=== PATIENT | female | born 1970 | race Caucasian/White ===

== ENCOUNTER → 2018-08-01 15:42 | Outpatient (CLI) | payer OTHER, SELFPAY ==
--- NOTE | 2018-08-01 15:49 | XR_ITS ---
XR foot LT min 3V HISTORY: ITS.REASON: LT FOOT PAIN ORDERING PHYSICIAN: Oracio Curiel MD PATIENT AGE: 48 years COMPARISON: None FINDINGS: No fracture or dislocation. No lytic or blastic change. There is normal mineralization.. The joint spaces are well-preserved. No significant degenerative/arthritic changes. No erosive changes evident. IMPRESSION: Negative, no acute finding
--- NOTE | 2018-08-01 15:49 | XR_ITS ---
XR hand RT min 3V HISTORY: ITS.REASON: RT HAND PAIN ORDERING PHYSICIAN: Oracio Curiel MD PATIENT AGE: 48 years COMPARISON: None FINDINGS: No fracture or dislocation. No lytic or blastic change. There is normal mineralization.. The joint spaces are well-preserved. No significant degenerative/arthritic changes. No erosive changes evident.. IMPRESSION: Negative, no acute finding
== END ==
PROVIDERS: PCP Family Medicine; Visit Provider Family Medicine
DX: M79.672 Pain in left foot (principal); M79.641 Pain in right hand
CPT/HCPCS: 73130; 73630

== ENCOUNTER → 2020-01-07 12:56 | Outpatient (CLI) | payer OTHER, SELFPAY ==
--- NOTE | 2020-01-07 12:56 | US_ITS ---
PROCEDURE: US TRANSVAGINAL CLINICAL INDICATION: US t/v- pelvic pain, RLQP COMPARISON: US PTV US PELVIS-TRANSVAGINAL ONLY from 02/18/2017 FINDINGS: UTERUS: 10cm x 4cmx 4cm with a combined endometrial thickness of 6mm LEFT OVARY: 1bvc5inq8.5cm with a volume of 14.5ml. RIGHT OVARY: [id number] with a volume of 3.8ml. The uterus has a bulky contour with a 19 mm area of decreased echogenicity along the uterine fundus which may be due to fibroid. The fundus of the uterus is somewhat bulky. There is a 3 x 2 cm simple appearing left ovarian cyst IMPRESSION: Bulky uterus with possible fibroid and small left ovarian cyst Dictated by: Gregg Martinez MD 01/07/2020 18:39 Gregg Martinez MD in [place] 01/07/2020 18:39
== END ==
PROVIDERS: PCP Family Medicine; Visit Provider Obstetrics & Gynecology
DX: R10.31 Right lower quadrant pain (principal)
CPT/HCPCS: 76830

== ENCOUNTER → 2020-01-21 15:19 | Outpatient (CLI) | payer OTHER, SELFPAY ==
--- NOTE | 2020-01-21 15:25 | XR_ITS ---
PROCEDURE: XR MULTIPLE SPINE 6+V CLINICAL INDICATION: Personal hx of diseases of the ms sys and conn tiss COMPARISON: No exams were available for comparison FINDINGS: Moderate lower thoracic scoliosis convex right measuring 33 degrees. Mild lumbar scoliosis convex left measuring 12 degrees. No fracture or dislocation. No lytic or blastic change. There is degenerative disc disease at L5-S1. Other findings:None. IMPRESSION: Thoracolumbar scoliosis with degenerative disc disease at L5-S1 Dictated by: Gregg Martinez MD 01/21/2020 17:14 Gregg Martinez MD in [place] 01/21/2020 17:14
== END ==
PROVIDERS: PCP Family Medicine; Visit Provider Family Medicine
DX: M54.16 Radiculopathy, lumbar region (principal); Z87.39 Personal history of other diseases of the musculoskeletal system and connective tissue
CPT/HCPCS: 72084

== ENCOUNTER → 2020-09-24 14:17 | Outpatient (CLI) | payer OTHER, SELFPAY ==
--- NOTE | 2020-09-24 14:17 | US_ITS ---
PROCEDURE: US TRANSVAGINAL CLINICAL INDICATION: pelvic pain, right upper quad COMPARISON: US US TRANSVAGINAL from 01/07/2020 FINDINGS: UTERUS: 8cm x 4cmx 2cm with a combined endometrial thickness of 3.9mm LEFT OVARY: 4trr8dph9.3cm with a volume of 2.5ml. RIGHT OVARY: 2cmx 2smz8dk with a volume of 2.5ml. Single small 2 centimeter fundal uterine fibroid. Uterus is retroflexed. Ovaries are normal. Single small cervical nabothian cyst. No free fluid in the posterior cul-de-sac or pelvis. IMPRESSION: 2 centimeter fundal uterine fibroid. Retroflexed uterus. Single small cervical nabothian cyst. Dictated by: Basim Callaway MD 09/24/2020 15:47 Basim Callaway MD in [place] 09/24/2020 15:47
== END ==
PROVIDERS: PCP Family Medicine; Visit Provider Obstetrics & Gynecology
DX: R10.2 Pelvic and perineal pain (principal)
CPT/HCPCS: 76830

== ENCOUNTER → 2020-10-06 10:19 | Outpatient (CLI) | payer OTHER, SELFPAY ==
--- NOTE | 2020-10-06 10:19 | MM_ITS ---
PROCEDURE INFORMATION: Exam: MG Screening 3D Mammography Exam date and time: 10/06/2020 10:19 AM Age: 50 years old Clinical indication: Encounter for screening mammogram for malignant neoplasm of breast TECHNIQUE: Imaging protocol: Screening tomosynthesis and 2D mammography including computer-aided detection (CAD) when performed. COMPARISON: No relevant prior studies available. FINDINGS: MAMMOGRAPHY: Breast composition: The breast tissue is extremely dense, limiting the sensitivity of mammography. Mass: Questionable lobulated 2.0 cm mass in the posterior third of the left medial breast best seen in the craniocaudal projection Architectural distortion: None. Calcifications: No suspicious calcifications. Asymmetric density: None. Skin thickening: None. Axillary adenopathy: None. IMPRESSION: Patient to be recalled for spot compression views of the left breast in the CC and MLO projections, a full 90 degree lateral view of the left breast, and left breast ultrasound for further evaluation of a left breast mass. ASSESSMENT: BI-RADS Category 0: Incomplete- Need Additional Imaging Evaluation and/or Prior Mammograms for Comparison
== END ==
PROVIDERS: PCP Family Medicine; Visit Provider Obstetrics & Gynecology
DX: Z12.31 Encounter for screening mammogram for malignant neoplasm of breast (principal)
CPT/HCPCS: 77063; 77067

== ENCOUNTER → 2020-10-18 07:57 | Outpatient (CLI) | payer OTHER, SELFPAY ==
[2020-10-18 08:45] LABS: Basophils # 0.1 K/mm3 (0-0.2); Basophils % 1.3 % (0.1-2.0); Eosinophils # 0.3 K/mm3 (0.0-0.4); Hematocrit 41.3 % (37.0-47.0); Lymphocytes # 2.5 K/mm3 (0.7-4.5); Lymphocytes % 36.2 % (10-50); Mean Corpuscular HGB Conc 33.8 g/dL (31.8-35.4); Mean Corpuscular Hemoglobin 30.9 pg (27.0-31.2); Mean Corpuscular Volume 91.5 fl (81-99); Mean Platelet Volume 9.1 fl (7.4-10.4); Monocytes # 0.3 K/mm3 (0.1-1.0); Monocytes % 4.1 % (1.7-9.3); Neutrophils # 3.8 K/mm3 (1.8-7.8); Neutrophils % 54.3 % (37.0-80.0); Platelet Count 190 K/mm3 (142-424); Red Blood Count 4.51 M/mm3 (4.20-5.40); Red Cell Distribution Width 13.8 % (11.5-17.5); White Blood Count 6.9 K/mm3 (4.8-10.8)
[2020-10-18 08:47] LABS: Urine Pregnancy, HCG Qual. Negative (Negative)
[2020-10-18 08:57] LABS: Barbiturates Screen,Urine Negative ng/ml (<200)
[2020-10-18 08:58] LABS: Amphetamine/Metha Screen,Urine Negative ng/ml (<1000); Benzodiazepines Screen,Urine Negative ng/ml (<200)
[2020-10-18 08:59] LABS: Cannabinoid Screen,Urine Negative ng/ml (<50); Cocaine Screen,Urine Negative ng/ml (<300)
[2020-10-18 09:00] LABS: Methadone Screen,Urine Negative ng/ml (<300)
[2020-10-18 09:01] LABS: Opiate Screen,Urine Negative ng/ml (<300); Phencyclidine Screen,Urine Negative ng/ml (<25)
[2020-10-18 09:23] LABS: Alanine Aminotransferase 14 U/L (12-78); Albumin/Globulin Ratio 1.7 (1.1-1.8); Alkaline Phosphatase 55 U/L (38-126); Anion Gap 11.5 mEq/L (5-15); Aspartate Amino Transferase 20 U/L (14-36); Bilirubin,Total 0.6 mg/dl (0.2-1.3); Blood Urea Nitrogen 10 mg/dl (7-17); Calcium 9.2 mg/dl (8.4-10.2); Carbon Dioxide 30 mmol/L (22.0-30.0); Chloride 103 mmol/L (98-107); Estimated Glomerular Filt Rate 76 ml/min (>60); GFR (African American) 92 ML/MIN (>60); Globulin 2.4 g/dL (1.3-3.2); Glucose 89 mg/dl (74-100); Potassium 4.5 mmoL/L (3.5-5.1); Sodium 140 mmol/L (136-145); Total Protein,Serum 6.4 g/dl (6.3-8.2)
== END ==
PROVIDERS: Visit Provider Obstetrics & Gynecology
DX: Z01.812 Encounter for preprocedural laboratory examination (principal); Z11.52 Encounter for screening for COVID-19; R10.2 Pelvic and perineal pain
CPT/HCPCS: 80053; 80305; 81025; 85025; U0003

== ENCOUNTER 2020-10-20 06:18 | Day surgery (SDC) | payer OTHER, SELFPAY ==
[2020-10-15 09:45] VITALS: BMI 25.4
[2020-10-20] VITALS (12 sets, daily range): BP systolic 92–123; BP diastolic 52–80; PULSE 53–71; RESP 15–18; TEMP 36.5–43; O2SAT 92–99
--- NOTE | 2020-10-20 07:02 | HMH.ANESCL ---
[facility] Anesthesia Checklist - Patient Identification Patient Identification: Arm Band - Structural Data Admitted From: Home Planned Operative Procedure/s: Diagnostic laparoscopy with RSO Consent for Planned Operative Procedure(s) Verified: Yes - NPO Status Verified Time NPO: 00:00 - Additional verifications Anesthesia Reactions: No Hx Blood Transfusions: No Blood Transfusion Reaction: No - Airway Assessment C-Spine Mobility Assessed: Yes TMJ Mobility Assessed: Yes Dentition: Good Dentition - Neurological Assessment Level of Consciousness: Awake Hx Seizures: No Numbness or tingling in extremities: No - Anesthesia Plan Anesthesia Risk discussed: Yes Anesthesia Plan: Verified ASA Class: I Anesthesia Type: General [facility] History I have reviewed the patient's past medical history: Yes Medical History: Denies:: Cancer, Diabetes Mellitus Type 1, Diabetes Mellitus Type 2, Internal Pacemaker, MRSA, Seizures *Have you ever received a pneumonia vaccine?: No *Have you received a flu vaccine this season?: No Other Medical History: Denies: Blood Transfusion Reaction Anesthesia experience/problems:: None Other Surgeries: Yes: , Tubal Ligation. No: Pacemaker Amputation: No Fractures: No - *Social History Smoking Status: Former smoker Alcohol Intake: never Alcohol Intake Frequency:: holidays/special occasions only Substance Use Type: denies use *Occupational Status:: employed Housing: house Household Members: spouse *Travel in the last 8 weeks: None Family Hx:: No significant family history
--- NOTE | 2020-10-20 10:35 | P.PN_ITS ---
[facility] Anesthesia Record Part I Intake, IV Amount: 1,500 Estimated blood loss (mL): 50 Urine output (mL): 0 Blood Pressure: 102/63 SaO2: 92 Pulse Rate: 70 Respiratory Rate: 16 Temperature: 98.9 F Patient is:: Drowsy, Stable Stable to PACU at:: 10:30
--- NOTE | 2020-10-20 12:11 | HMH.OPNOTE ---
Date of procedure: 10/20/20 Pre-op Diagnosis:: Pelvic pain Post-op Diagnosis:: 1. Pelvic pain 2. Extensive abdominal & pelvic adhesions Procedure performed:: Diagnostic laparoscopy Extensive lysis of dense adhesions Right oophorectomy Surgeon:: Sol Belcher MD [employer] TECHNICIAN:: Jet Caputo Anesthesia: GETA Estimated blood loss (mL): 50 Operative findings:: dense adhesions between uterus and anterior abdominal wall omental adhesions to abdominal wall Operative note:: The patient was taken to the operating room and general anesthesia was administered. She was prepped/draped in lithotomy position. The anatomic location of the cervix was displaced anteriorly and to the patients right; attempted cervical dilation for placement of uterine manipulator was unsuccessful and a sponge stick was placed in the vagina as an alternative. Gloves were changed and attention was turned to the abdomen. A 5mm skin incision was made in the umbilical fold and the verees needle was inserted through the peritoneum and into the abdominal cavity in standard fashion. The abdomen was insufflated with CO2 gas. A 5mm non-bladed trocar was inserted directly into the abdominal cavity and appropriate placement was confirmed with the laparoscope. No intra-abdominal injuries occurred during entry into the abdominal cavity, as confirmed visually with the laparoscope. The patient was placed in trendelenburg and a 11mm skin incision was made 2cm above the pubic symphysis, left of midline in order to avoid omental adhesions. A 11mm non-bladed trocar was inserted under direct visualization, without complication. The uterus was elevated out of the pelvis in order to better visualize the anatomy. A survey of the pelvis and abdomen revealed the findings noted above. 5mm skin incisions were made in the left and right lower quadrants and non-bladed trocars were inserted under direct visualization, without complication. The omentum was taken down sharply and bluntly, utilizing the harmonic scalpel. The dissection of these adhesions took approximately 40 minutes to complete. Once the omentum was from the abdominal wall, the uterus was able to be visualized and was noted to be bulky in appearance with fibroids and was also densely attached to the anterior abdominal wall. The right ovary was normal in appearance, although adhesed to the right abdominal sidewall. The ovary was sharply dissected off the adominal wall and was excised using the harmonic scalpel. The ovary was removed using an endobag and sent for pathology. The abdomen and pelvis were copiously irrigated with normal saline and all pedicles were inspected for hemostasis. No active bleeding was observed, but jodee was placed over the area of omental dissection as an additional precaution. The abdomen was then evacuated of gas and all trocars removed. The skin incisions were closed with 4-0 monocryl. The sponge stick was removed from the vagina. All sponge/lap/needle/instrument counts correct. Total EBL: 50 cc. The patient was taken out of lithotomy position, extubated and taken to the PACU in stable condition. Condition: stable Disposition: PACU Specimens:: Right ovary Complications:: none
--- NOTE | 2020-10-20 14:04 | HMH.ANESII ---
[facility] Anesthesia Record Part II Discharge Time: 11:00 Destination: Surgical Day Care (OP Surgery) PACU nurse assessment reviewed?: Yes Patient Condition:: Good Anesthesia Complications:: None Swallowing reflex intact?: Yes Cyanosis?: No Blood Pressure: 110/67 Pulse Rate: 57 Temperature: 98.7 F Mental Status: Alert & Oriented Pain level:: 0 Nausea and/or vomitting:: None Intake, IV Amount: 0
== END 2020-10-20 11:40 | disposition home or self-care (01) ==
LOC: OR 06:19
PROVIDERS: PCP Family Medicine; Visit Provider Obstetrics & Gynecology
PROC: (CPT 49320; principal; 2020-10-20 08:00)
DX: K66.0 Peritoneal adhesions (postprocedural) (postinfection) (principal); R10.2 Pelvic and perineal pain; Z87.891 Personal history of nicotine dependence; M41.9 Scoliosis, unspecified; Z91.040 Latex allergy status
CPT/HCPCS: 58661; 96374; J2405; J2710

== ENCOUNTER → 2020-10-27 13:54 | Outpatient (CLI) | payer OTHER, SELFPAY ==
--- NOTE | 2020-10-27 13:55 | US_ITS ---
PROCEDURE: US BREAST LT COMPLETE CLINICAL INDICATION: abnormal mammogram COMPARISON: Screening mammogram of October 06, 2020 FINDINGS: There is a focal 1.8 x 0.8 times 1.3 centimeter anechoic lesion noted at the area of concern at 10 o'clock position which may represent a complex cyst with internal septations versus a cluster of cysts. There is no significant vascularity is noted within the septations. On a single image there is demonstrable flow noted in the septation which could not be redemonstrated, likely artifactual. Further smaller anechoic lesions are noted at 11 o'clock and 9 o'clock positions, likely represent cysts. Left axillary lymph nodes measuring up to 1.3 centimeters noted, demonstrate central fatty hilum and normal morphology. IMPRESSION: BI-RADS category 3, probably benign. Follow-up ultrasound in 6 months is recommended. Dictated by: Harriet Plata 10/27/2020 14:45 Harriet Plata in [facility] 10/27/2020 14:45
--- NOTE | 2020-10-27 13:55 | MM_ITS ---
PROCEDURE: MM DIG MAMM DX UNILAT LT CAD Digital Breast Tomosynthesis Included CLINICAL INDICATION: abnormal mammogram COMPARISON: Screening mammogram of December 06, 2020. TECHNIQUE: Standard CC and MLO images and 3D Tomosynthesis was obtained. R2 CAD reviewed. FINDINGS: The breast is extremely dense, may lower sensitivity of the study. There is a focal density noted on the left upper inner breast, persists on spot compression images. Ultrasound demonstrates focal anechoic lesion with the internal septations versus cluster of cysts. Benign appearing calcifications noted in the left breast. IMPRESSION: Probably benign finding. BI-RAD Category: 3 Probably Benign Finding Short Term Follow-Up FOLLOW-UP: Follow-up ultrasound in 3-6 months recommended. (A letter has been sent to the patient regarding results of the study.) Dictated by: Harriet Plata 10/27/2020 14:50 Harriet Plata in [place] 10/27/2020 14:50
== END ==
PROVIDERS: PCP Family Medicine; Visit Provider Obstetrics & Gynecology
DX: R92.8 Other abnormal and inconclusive findings on diagnostic imaging of breast (principal)
CPT/HCPCS: 76641; 77061; 77065; G0279

== ENCOUNTER → 2021-02-05 13:21 | Outpatient (CLI) | payer OTHER, SELFPAY ==
--- NOTE | 2021-02-05 13:21 | US_ITS ---
PROCEDURE: US BREAST LT COMPLETE CLINICAL INDICATION: repeat COMPARISON: MG MM DIG SCREENING MAMM BI W/CAD from 10/06/2020 MG MM DIG MAMM DX UNILAT LT CAD from 10/27/2020 US US BREAST LT COMPLETE from 10/27/2020 FINDINGS: 5 mm cyst at 1 o'clock near the nipple. 5 mm cyst at 3 o'clock near the nipple 5 mm cyst at 9 o'clock mid Complicated cyst at 10 o'clock at 2 by 1.4 cm not significantly changed. Complicated cyst at 11 o'clock mid breast at 6 mm IMPRESSION: Overall no change in the complicated cysts with the dominant cyst at 10 o'clock. BI-RADS category 3 probably benign. Recommend left-sided diagnostic mammogram in April 2021 which would be 6 months from the original mammogram. Ultrasound may need to be performed at that time as well. Dictated by: Gregg Martinez MD 02/19/2021 17:21 Gregg Martinez MD in [place] 02/19/2021 17:21
== END ==
PROVIDERS: PCP Family Medicine; Visit Provider Obstetrics & Gynecology
DX: R92.8 Other abnormal and inconclusive findings on diagnostic imaging of breast (principal)
CPT/HCPCS: 76641

== ENCOUNTER → 2021-03-19 15:47 | Outpatient (CLI) | payer OTHER, SELFPAY | PROVIDERS: Visit Provider Obstetrics & Gynecology | DX: N92.6 Irregular menstruation, unspecified (principal) | CPT/HCPCS: 36415; 83001 ==

== ENCOUNTER → 2021-05-29 14:08 | Outpatient (CLI) | payer OTHER, SELFPAY ==
--- NOTE | 2021-05-29 14:08 | US_ITS ---
PROCEDURE INFORMATION: Exam: US Left Breast, Complete MG Left Diagnostic Breast Tomosynthesis Exam date and time: 05/29/2021 2:33 PM Age: 51 years old Clinical indication: 6 month follow up TECHNIQUE: Imaging protocol: Complete ultrasound of all four quadrants of the Left breast and the retroareolar regions, including ultrasound of the axilla when performed. Left Diagnostic tomosynthesis and 2D mammography including computer-aided detection (CAD) when performed. Unilateral or bilateral exam. COMPARISON: 1. MG MM DIG MAMM DX UNILAT LT CAD 10/27/2020 1:58 PM 2. MG MM DIG SCREENING MAMM BI W/CAD 10/06/2020 10:22 AM FINDINGS: MAMMOGRAPHY: The breast tissue is extremely dense, which lowers the sensitivity of mammography. There is no stellate mass, architectural distortion or suspicious microcalcifications to suggest malignancy. No skin thickening or axillary adenopathy. ULTRASOUND: Sonographic images of the left breast including the retroareolar region, all 4 quadrants and the axilla do not demonstrate any solid masses. Few scattered cysts are present including a 1.9 cm cluster of cysts in the 10 o'clock axis 7 cm from the nipple. No architectural distortion or acoustical shadowing. No skin thickening or axillary adenopathy. IMPRESSION: No mammographic or sonographic evidence of malignancy. Annual bilateral mammographic screening is recommended in October 2021 unless otherwise clinically indicated. ASSESSMENT: BI-RADS Category 2: Benign
== END ==
PROVIDERS: PCP Family Medicine; Visit Provider Obstetrics & Gynecology
DX: R92.8 Other abnormal and inconclusive findings on diagnostic imaging of breast (principal)
CPT/HCPCS: 76641; 77061; 77065; G0279

== ENCOUNTER → 2022-06-02 15:50 | Outpatient (CLI) | payer OTHER, SELFPAY ==
--- NOTE | 2022-06-02 15:50 | MM_ITS ---
PROCEDURE INFORMATION: Exam: MG Bilateral Screening 3D Mammography Exam date and time: 06/02/2022 3:45 PM Age: 52 years old Clinical indication: Screening examination TECHNIQUE: Imaging protocol: Bilateral Screening tomosynthesis and 2D mammography including computer-aided detection (CAD) when performed. COMPARISON: 1. MG MM DIG MAMM DX UNILAT LT CAD 05/29/2021 2:28 PM 2. MG MM DIG MAMM DX UNILAT LT CAD 10/27/2020 1:58 PM FINDINGS: MAMMOGRAPHY: Breast composition: The breasts are heterogeneously dense, which may obscure small masses. Mass: No suspicious masses Architectural distortion: None. Calcifications: No suspicious calcifications. Asymmetric density: None. Skin thickening: None. Axillary adenopathy: None. IMPRESSION: No mammographic evidence of malignancy. Annual screening is recommended unless otherwise clinically indicated. ASSESSMENT: BI-RADS Category 1: Negative
== END ==
PROVIDERS: PCP Family Medicine; Visit Provider Obstetrics & Gynecology
DX: Z12.31 Encounter for screening mammogram for malignant neoplasm of breast (principal)
CPT/HCPCS: 77063; 77067

== ENCOUNTER 2023-08-31 13:17 | Outpatient (CLI) | payer OTHER, SELFPAY ==
--- NOTE | 2023-08-31 13:22 | MM_ITS ---
PROCEDURE INFORMATION: Exam: MG Bilateral Screening 3D Mammography Exam date and time: 08/31/2023 1:17 PM Age: 53 years old Clinical indication: Screening examination TECHNIQUE: Imaging protocol: Bilateral Screening tomosynthesis and 2D mammography including computer-aided detection (CAD) when performed. COMPARISON: 1. MG MM DIG SCREENING MAMM BI W/CAD 06/02/2022 3:45 PM 2. MG MM DIG MAMM DX UNILAT LT CAD 05/29/2021 2:28 PM FINDINGS: MAMMOGRAPHY: Breast composition: The breasts are heterogeneously dense, which may obscure small masses. Mass: No new or suspicious masses Architectural distortion: None. Calcifications: No suspicious calcifications. Asymmetric density: None. Skin thickening: None. Axillary adenopathy: None. IMPRESSION: No mammographic evidence of malignancy. Annual screening is recommended unless otherwise clinically indicated. ASSESSMENT: BI-RADS Category 1: Negative
== END 2023-08-31 23:59 | disposition home or self-care (01) ==
LOC: RAD 13:18
PROVIDERS: PCP Family Medicine; Visit Provider Family Medicine
DX: Z12.31 Encounter for screening mammogram for malignant neoplasm of breast (principal)
CPT/HCPCS: 77063; 77067

== ENCOUNTER 2023-09-15 08:16 | Outpatient (CLI) | payer OTHER, SELFPAY ==
--- NOTE | 2023-09-15 08:22 | US_ITS ---
FINAL REPORT CLINICAL HISTORY: RUQ ABDOMINAL PAIN;NAUSEA AND VOMITING COMPARISON: None FINDINGS: Sonographic images of the right upper quadrant were obtained. The pancreas is partially obscured.The liver has an unremarkable appearance.The gallbladder appears normal without evidence of gallstones.There is no evidence of biliary ductal dilatation.The common duct measures 4mm. Limited images of the right kidney are unremarkable. IMPRESSION: Unremarkable right upper quadrant ultrasound. Reviewed, Interpreted and Dictated by Arian Ho III, MD Transcribed by Ivette Chavez Authenticated and [facility]
== END 2023-09-15 23:59 | disposition home or self-care (01) ==
LOC: RAD 08:17
PROVIDERS: PCP Family Medicine; Visit Provider Family Medicine
DX: R10.11 Right upper quadrant pain (principal); R11.2 Nausea with vomiting, unspecified
CPT/HCPCS: 76705

== ENCOUNTER 2024-02-23 10:13 | Outpatient (CLI) | payer OTHER, SELFPAY ==
--- NOTE | 2024-02-23 10:21 | NM_ITS ---
FINAL REPORT CLINICAL HISTORY: pain..n/v 11:05 am 7.61 mci choletec 1.5 mcg of cck no pain during cck FINDINGS: Sequential anterior projection images of the abdomen were obtained after the intravenous injection of 7.6 mCi technetium 99m Choletec. There is normal uptake of radiotracer by the liver. The bile ducts are visualized by 10 minutes. Gallbladder activity is seen by 15 minutes. Bowel activity is noted by 15 minutes. After 1 hour, 1.5 ?g of CCK was injected intravenously for calculation of gallbladder ejection fraction. The gallbladder ejection fraction is 56%, which is within normal limits. IMPRESSION: No evidence of cystic duct or bile duct obstruction. Normal gallbladder ejection fraction of 56%. Reviewed, Interpreted and Dictated by Arian Ho III, MD Transcribed by Stacie Sandoval Authenticated and [facility]
[2024-02-23] MEDS: SINCALIDE 1.5 MCG in 0.9 % SODIUM CHLORIDE 50 ML 100 MCG IV (13:50)
[2024-02-23] MEDS: SODIUM CHLORIDE 0.9% 10ML SYR (RAD ONLY) 10 ML IV (13:50)
[2024-02-23] MEDS: ISOTOPE CHOLETECH;1 DOSE (UP TO 15 MCI) IV (13:50)
== END 2024-02-23 23:59 | disposition home or self-care (01) ==
PROVIDERS: PCP Family Medicine; Visit Provider Family Medicine
DX: R10.11 Right upper quadrant pain (principal)
CPT/HCPCS: 78227; A9537; J2805

== ENCOUNTER 2024-03-02 11:36 | Outpatient (CLI) | payer OTHER, SELFPAY ==
--- NOTE | 2024-03-02 11:57 | ECG_ITS ---
APPROVED REPORT Exam: Resting ECG HR:57 bpm ECG Measurements Heart Rate 57 AXES SD 148 P 76 QRSd 91 QRS 79 QT 406 T 74 QTc 401 Conclusion SINUS BRADYCARDIA O/w normal ECG UNCONFIRMED REPORT Electronically signed by : Maldonado Alejo MD 03/02/2024 13:18:18
[2024-03-02 12:19] LABS: Basophils # 0.1 K/mm3 (0-0.2); Basophils % 1.7 % (0.1-2.0); Eosinophils # 0.2 K/mm3 (0.0-0.4); Eosinophils % 2.5 % (0.1-12.0); Hemoglobin 14.9 g/dL (12.2-16.2); Lymphocytes # 2.4 K/mm3 (0.7-4.5); Lymphocytes % 36.6 % (10-50); Mean Corpuscular HGB Conc 34.6 g/dL (31.8-35.4); Mean Corpuscular Hemoglobin 31.2 pg (27.0-31.2); Mean Platelet Volume 9.1 fl (7.4-10.4); Monocytes # 0.4 K/mm3 (0.1-1.0); Monocytes % 5.4 % (1.7-9.3); Neutrophils # 3.5 K/mm3 (1.8-7.8); Neutrophils % 53.8 % (37.0-80.0); Platelet Count 207 K/mm3 (142-424); Red Blood Count 4.78 M/mm3 (4.20-5.40); Red Cell Distribution Width 13.5 % (11.5-17.5); White Blood Count 6.4 K/mm3 (4.8-10.8)
[2024-03-02 12:28] LABS: Creatine Kinase 56 U/L (30-135)
[2024-03-02 12:38] LABS: CKMB Relative Index 1.4 U/L (0-4.0); Creatine Kinase MB 0.8 ng/ml (0.0-2.03)
[2024-03-02 12:42] LABS: Albumin Level 4.5 g/dl (3.5-5.0); Chloride 104 mmol/L (98-107)
[2024-03-02 12:42] LABS: Troponin I < 0.01 ng/ml (0.00-0.034)
[2024-03-02 12:43] LABS: Potassium 4.4 mmoL/L (3.5-5.1); Sodium 138 mmol/L (136-145)
[2024-03-02 12:45] LABS: Alanine Aminotransferase 20 U/L (12-78); Alkaline Phosphatase 84 U/L (38-126); Anion Gap 12.4 mEq/L (5-15); Aspartate Amino Transferase 24 U/L (14-36); Bilirubin,Total 0.6 mg/dl (0.2-1.3); Blood Urea Nitrogen 14 mg/dl (7-17); Carbon Dioxide 26 mmol/L (22.0-30.0); Estimated Glomerular Filt Rate 75 ml/min (>60); GFR (African American) 91 ML/MIN (>60)
[2024-03-02 12:46] LABS: Calcium 9.9 mg/dl (8.4-10.2); Globulin 2.3 g/dL (1.3-3.2); Glucose 99 mg/dl (74-100); Total Protein,Serum 6.8 g/dl (6.3-8.2)
== END 2024-03-02 23:59 | disposition home or self-care (01) ==
LOC: RT 11:38
PROVIDERS: PCP Family Medicine; Visit Provider Physician Assistant
DX: R07.89 Other chest pain (principal)
CPT/HCPCS: 36415; 80053; 82550; 82553; 84484; 85025; 93005

== ENCOUNTER 2024-05-16 09:28 | Day surgery (SDC) | payer OTHER, SELFPAY ==
[2024-05-15 09:02] VITALS: BMI 28.3
[2024-05-16] MEDS: LACTATED RINGERS 1000ML 1,000 ML 50 ML IV (09:48)
[2024-05-16 09:50] VITALS: BP 129/71; PULSE 71; RESP 18; TEMP 36.6; O2SAT 97
--- NOTE | 2024-05-16 10:18 | P.PNANES_ITS ---
[facility] Disclaimer: The information contained in this section may have been updated after the patient was seen, as this information can be updated by other users. Medical History No significant past medical history Surgical History S/P oophorectomy History of tubal ligation History of section Family History Other Dementia Diabetes Social History Smoking Status: Former smoker alcohol intake: never substance use type: denies use current occupational status: employed Travel in the last 8 weeks: None household members: spouse housing: house current occupational exposures/hazards: No caffeine: Yes Have you lived/traveled outside US in past 30 days?: No Contact w/someone who lives/traveled outside US past 30 days?: No Exposure to someone with infectious disease in past 14 days?: No Do you have a fever (greater than 100.4 F or 38 C)?: No Have you tested positive for COVID-19: No Exposed to someone with COVID-19 in past 14 days?: No Do you have a sore throat?: No Do you have a cough?: No Do you have any weakness?: No Are you experiencing any nausea/vomitting?: No Do you have any diarrhea?: No Are you experiencing any unusual bleeding?: No Do you have any muscle aches/pain?: No Do you have any abdominal pain?: No Are you experiencing loss of taste or smell?: No [facility] Anesthesia Checklist Patient Identification Patient Identification: Verbal (Name & ) Structural Data Admitted From: Home Planned Operative Procedure/s: colonoscopy Consent for Planned Operative Procedure(s) Verified: Yes NPO Status Verified Time NPO: 00:00 Additional verifications Anesthesia Reactions: No Hx Blood Transfusions: No Blood Transfusion Reaction: No Airway Assessment Mallampati Score:: Class II C-Spine Mobility Assessed: Yes TMJ Mobility Assessed: Yes Dentition: Good Dentition Neurological Assessment Level of Consciousness: Awake, Alert and Appropriate Anesthesia Plan Anesthesia Risk discussed: Yes Anesthesia Plan: Verified ASA Class: I Anesthesia Type: MAC
[2024-05-16 10:42] VITALS: O2SAT 100
--- NOTE | 2024-05-16 10:47 | P.HP_ITS ---
History of Present Illness *Admission Date: 05/16/24 *Reason for visit:: GERD and screening for colon cancer *History of present illness: Ms. Levy is a 54-year-old female with some GERD and dyspepsia. She also has never had screening colonoscopy and she is here for diagnostic EGD and screening colonoscopy. The examination is deemed medically necessary for EGD and colonoscopy. The patient has been seen, interviewed and examined prior to the procedure by both myself and the anesthesia provider. [facility] Disclaimer: The information contained in this section may have been updated after the patient was seen, as this information can be updated by other users. Medical History (Updated 05/16/24 @ 10:49 by Matthew Turpin II, MD) No significant past medical history Surgical History S/P oophorectomy History of tubal ligation History of section Family History Other Dementia Diabetes Social History Smoking Status: Former smoker alcohol intake: never substance use type: denies use current occupational status: employed Travel in the last 8 weeks: None household members: spouse housing: house current occupational exposures/hazards: No caffeine: Yes Have you lived/traveled outside US in past 30 days?: No Contact w/someone who lives/traveled outside US past 30 days?: No Exposure to someone with infectious disease in past 14 days?: No Do you have a fever (greater than 100.4 F or 38 C)?: No Have you tested positive for COVID-19: No Exposed to someone with COVID-19 in past 14 days?: No Do you have a sore throat?: No Do you have a cough?: No Do you have any weakness?: No Are you experiencing any nausea/vomitting?: No Do you have any diarrhea?: No Are you experiencing any unusual bleeding?: No Do you have any muscle aches/pain?: No Do you have any abdominal pain?: No Are you experiencing loss of taste or smell?: No Other Medical History Have you received the Flu Vaccine for this season: No Have you received the Pneumonia Vaccine: No Review of Systems Review of Systems Review of systems (narrative): Negative *Cardiovascular Comments: Negative *Gastrointestinal Comments: Negative *Genitourinary Comments: Negative *Musculoskeletal Comments: Negative *Neurologic Comments: Negative Meds Home Medications and Allergies Home Medications ?Medication ?Instructions ?Recorded ?Confirmed ?Type No Known Home Medications 05/16/24 05/16/24 History New Prescriptions to Start Prescriptions: Allergies Allergy/AdvReac Type Severity Reaction Status Date / Time latex Allergy Unknown Verified 05/16/24 09:49 allergy reaction Exam Data for Last 24 hours Vital signs and Labs for Last 24 Hours: Temp Pulse Resp BP Pulse Ox O2 Del Method O2 Flow Rate 97.8 F 71 18 129/71 97 Nasal Cannula 5 05/16/24 09:50 05/16/24 09:50 05/16/24 09:50 05/16/24 09:50 05/16/24 09:50 05/16/24 10:42 05/16/24 10:42 I & O for Last 24 hours: Intake & Output 05/13/24 05/14/24 05/15/24 05/16/24 23:59 23:59 23:59 23:59 Weight 160 lb *Routine HEENT Exam Head: Present normocephalic Eye: Present EOMI and PERRL ENT: Present mucous membranes moist *Routine Neck Exam Neck: Present supple *Routine Respiratory Exam Respiratory: Present CTA bilaterally *Routine Cardiovascular Exam Cardiovascular: Present RRR *Routine Abdominal Exam Abdominal: Present soft and normoactive bowel sounds; Absent tenderness *Routine Rectal Exam Rectal:: deferred *Routine Genitalia Exam Genitalia:: deferred *Routine Extremities Exam Extremities: Absent cyanosis, clubbing or edema *Routine Skin Exam Skin: Present warm; Absent rash *Routine Neurological Exam Neurological: Present alert and oriented X3 Assessment and Plan *Assessment and plan (1) Acid reflux: Status: Acute Category: Medical Code(s): K21.9 - Gastro-esophageal reflux disease without esophagitis (2) Heartburn: Status: Acute Category: Medical Code(s): R12 - Heartburn (3) Screening for colon cancer: Status: Acute Category: Medical Code(s): Z12.11 - Encounter for screening for malignant neoplasm of colon Plan A/P: 1. Heartburn/reflux for upper endoscopy and screening for colon cancer for colonoscopy is the preprocedural diagnosis. The patient will be anesthetized/sedated using MAC sedation. The patient has been seen and examined. Cardiac and lung assessment prior to the examination is stable. Proceed with planned EGD and colonoscopy
--- NOTE | 2024-05-16 10:49 | P.PCN_ITS ---
[facility] Procedure Note Date: 05/16/24 Time: 11:08 Procedure Note:: Upper Endoscopy Procedure Report: Esophagogastroduodenoscopy with cold biopsies and TTS balloon dilation Endoscopost: Matthew Turpin II, MD Referring Physician: Oracio Curiel MD Date of Procedure: May 16, 2024 Equipment: Olympus GIF 190 standard upper endoscope Sedation: MAC sedation Indications: Mrs. Levy is a 54-year-old female who is here for diagnostic upper endoscopy. The patient was having some dyspepsia/epigastric pain which improved. Now, she has primarily nocturnal heartburn and reflux when she is supine. She has tried omeprazole and pantoprazole both of which give her headaches. She reports no belching or dysphagia. She does have some bloating and intermittent early satiety. She reports regular bowel function. She did have an unremarkable gallbladder ultrasound. Her HIDA scan was normal with an ejection fraction of 56%. She reports no nausea, vomiting or weight loss. Procedure: Prior to the procedure, a history and physical exam was performed, and patient's medications and allergies were reviewed. The risks, benefits and alternatives of the sedation and procedure were discussed with the patient. All questions were answered and informed consent was obtained. The patient was brought to the procedure room. Patient identification and proposed procedure were verified by the physician and the nurse. The patient was placed in a left lateral decubitus position and the scope was passed under direct vision. Throughout the procedure, the patient's blood pressure, pulse, and oxygen saturations were monitored continuously. The upper GI endoscopy was accomplished without di fficulty. The patient tolerated the procedure well. Findings: The scope was passed directly into the upper esophagus and advanced to the third portion of the duodenum. The post bulbar duodenum and duodenal bulb were normal with normal mucosa and conniventes. There was a single small lymphangiectasia in the second portion of the duodenum that was biopsied. The scope was withdrawn through a normal duodenal bulb and pylorus into the stomach. There was some very mild peptic duodenitis of the bulb. Within the stomach there was some very mild reactive gastropathy of the antrum. The body and fundus were normal. Biopsies were taken along the lesser curvature to rule out H. pylori. Upon retroflexion there was a 4 cm hiatal hernia. There were no Hemal's erosions. The scope was then withdrawn into the esophagus. There was a distal esophageal ring. There was grade A?B (LA classification) reflux esophagitis. The esophageal fibrotic ring was dilated to 60 Georgian/20 mm with a TTS hydrostatic balloon with shattering of the ring. There was no evidence of Diaz's esophagus. The remainder of the esophageal mucosa was normal. Impression: 1. Grade A?B (LA classification) reflux esophagitis with medium sized 4 cm hiatal hernia 2. Distal esophageal fibrotic ring?dilated to 20 mm 3. Mild reactive gastropathy and mild duodenitis 4. Small duodenal lymphangiectasia Plan: I will follow-up the biopsies. I will recommend Ham since she has intolerable side effect of headache with PPI therapy. I will proceed with screening colonoscopy.
--- NOTE | 2024-05-16 11:22 | HMH.PROCNOTE ---
[facility] Procedure Note Date: 05/16/24 Time: 11:22 Procedure Note:: Colonoscopy Procedure Report: Colonoscopy Endoscopist: Matthew Turpin II, MD Referring physician: Oracio Curiel MD Date of Procedure: May 16, 2024 Equipment: Olympus 190 variable stiffness pediatric colonoscope Sedation: MAC sedation Indication: Mrs. Levy is a 54-year-old female who is here for initial screening colonoscopy. The patient reports no abdominal pain, weight loss, change in her bowel habits or rectal bleeding. She reports no family history of colon cancer. Procedure: Prior to the procedure, a history and physical exam was performed, and patient's medications and allergies were reviewed. The risks, benefits and alternatives of the sedation and procedure were discussed with the patient. All questions were answered and informed consent was obtained. The patient was brought to the procedure room. Patient identification and proposed procedure were verified by the physician and the nurse. The patient was placed in a left lateral decubitus position and the scope was passed under direct vision. Throughout the procedure, the patient's blood pressure, pulse, and oxygen saturations were monitored continuously. The colonoscopy was accomplished without difficulty. The patient tolerated the procedure well. Findings: On digital rectal examination there was normal rectal tone. There were no external hemorrhoids. The colonoscope was introduced through the anal canal to the rectum and advanced to the cecum. The ileocecal valve and appendiceal orifice were identified. The scope was advanced a short distance into the ileum which appeared grossly normal. The scope was then withdrawn into the colon. The cecum, ascending, transverse, descending, sigmoid and rectum were grossly normal. There were no mucosal abnormalities identified. Upon retroflexion within the rectum there were grade 1 internal hemorrhoids. The preparation was excellent throughout with [place] Preparation Score of 9. The cecal time was 11 minutes. Impression: 1. Normal colonoscopy with intubation of the terminal ileum Plan: The patient will not require surveillance colonoscopy again for 10 years per ACS guidelines.
[2024-05-16 11:26] VITALS: BP 87/56; PULSE 83; RESP 16; TEMP 36.4; O2SAT 95
[2024-05-16 11:36] VITALS: BP 85/57; PULSE 77; RESP 16; O2SAT 96
[2024-05-16 11:39] VITALS: BP 88/57; PULSE 87; RESP 16; O2SAT 96
[2024-05-16 11:56] VITALS: BP 91/55; PULSE 68; RESP 16; O2SAT 97
== END 2024-05-16 12:21 | disposition home or self-care (01) ==
PROVIDERS: PCP Family Medicine; Visit Provider Internal Medicine Gastroenterology
PROC: 0DJ08ZZ Inspection of Upper Intestinal Tract, Via Natural or Artificial Opening Endoscopic (ICD-10-PCS; CPT 45378; principal; 2024-05-16 11:00)
DX: K21.00 Gastro-esophageal reflux disease with esophagitis, without bleeding (principal); Z12.11 Encounter for screening for malignant neoplasm of colon; R10.13 Epigastric pain; K44.9 Diaphragmatic hernia without obstruction or gangrene; K22.2 Esophageal obstruction; K31.9 Disease of stomach and duodenum, unspecified; K29.80 Duodenitis without bleeding; I89.0 Lymphedema, not elsewhere classified; K64.0 First degree hemorrhoids
CPT/HCPCS: 43239; 43249; 45378; C1726; J7120

== ENCOUNTER 2024-09-20 07:48 | Outpatient (CLI) | payer OTHER, SELFPAY ==
--- OUTSIDE RECORDS SUMMARY | 2023-09-09 07:00 | XMS_ITS ---
Author Organization [facility] Address [address] [facility] [address] [place] [id number] Care Team Providers Care Trim Master Operator Name Role Phone Rocco Lema Primary Care Provider [phone] Oracio Curiel Unavailable [phone] Allergies No Known Allergies Results Component Value Reference Range Notes CBC Fingerstick (in house) Reviewed date:09/09/2023 11:56:33 AM Interpretation: Performing Lab: Notes/Report: wbc 8.1 3.5 - 10 lym 23.4 15 - 50 mid 6.0 2 - 15 gran 70.6 35 - 80 rbc 4.82 3.5 - 5.5 hgb 14.8 11.5 - 16.5 hct 45.5 35 - 55 mcv 94.2 75 - 100 mch 30.7 25 - 35 mchc 32.6 31 - 38 plat 195 100 - 400 P-Amylase Reviewed date:09/12/2023 01:20:01 PM Interpretation:Normal Performing Lab: Notes/Report: Test performed by [facility] [address] [place], [place] [address] [place] , [address], [place] [address] Kobe Barajas MD, [employer] CLIA: [id number] Amylase 63 28-100 U/L P-Comprehensive Metabolic Pa estevan (CMP) Reviewed date:09/12/2023 01:20:36 PM Interpretation:Satisfactory Performing Lab: Notes/Report: Test performed by [facility] [address] [place], [place] [address] [place] , [address], [place] [address] Kobe Barajas MD, [employer] CLIA: [id number] Sodium 141 135-145 mEq/L Potassium 4.7 3.5-5.3 mEq/L Chloride 105 97-108 mEq/L CO2 25 22-32 mEq/L Glucose 101 65-99 mg/dL BUN 9 6-20 mg/dL Creatinine 0.79 0.50-1.00 mg/dL Calcium 9.7 8.6-10.4 mg/dL eGFR by Creatinine 89 >59 mL/min/1.73m2 Protein 6.6 6.0-8.3 g/dL Albumin 4.5 3.5-5.3 g/dL Alkaline Phosphatase 92 35-121 IU/L ALT (SGPT) 17 <5-47 IU/L AST (SGOT) 18 <5-40 IU/L Bilirubin, Total 0.5 <0.2-1.2 mg/dL A/G Ratio 2.1 1.1-2.5 mg/dL P-Lipase Reviewed date:09/12/2023 01:20:17 PM Interpretation:Normal Performing Lab: Notes/Report: Test performed by [employer] [facility] [address] , [address], [place] [address] Kobe Barajas MD, Utility Plant Operative CLIA: [id number] Lipase 28.0 13.0-60.0 u/L Ultrasound : Right Upper Shane drpepe Reviewed date:09/19/2023 10:39:02 AM Interpretation:unremarkable Performing Lab: Notes/Report: unremarkable REASON FOR VISIT stomach pain ,vertgo and vomittiing Medications Medication SIG (Take, Route, Frequency, Duration) Notes Start Date End Date Status Ondansetron HCl 4 MG 1 tablet Orally thr ee times a day as needed 09/09/2023 Active Benadryl Allergy 25 MG 1 cap(s) orally hs Active Hyoscyamine Sulfate 0.125 MG 1 tablet as needed Orally every 4 hrs 09/09/2023 Active Meloxicam 15 MG 1 tablet Orally Once a day for 30 day(s) 08/22/2023 Active Social History CURRENT TOBACCO USE: Question Answer Notes Additional Findings: Tobacco Non-User Ex-cigaret te smoker Vital Signs Blood pressure systolic 140 mm Hg 09/09/19 24 Blood pressure diastolic 70 mm Hg 024 Heart Rate 64 /min 09/09/2023 Height 63.50 in 09/09/2023 Weight 163.8 lbs 09/09/2023 BMI 28.56 kg/m2 09/09/2023 Encounters Encounter Location Date Provider Diagnosis [facility] [address] [place] [id number] 09/09/2023 Oracio Veena RUQ abdominal pain R10.11 and Nausea and vomiting, unspecified vomiting type R11.2 Assessments Encounter Date Diagnosis (ICD Code) Assessment Notes Treatment Notes Treatment Clinical Notes Section Notes 09/09/2023 RUQ abdominal pain (ICD-10 - R10.11) 09/09/2023 Nausea and vomiting, unspecified vomiting type (ICD-10 - R11.2) Plan Of Treatment Medication Medication Name Sig Start Date Stop Date Notes Ondansetron HCl 4 MG 1 tablet Orally thr ee times a day as needed 09/09/2023 Hyoscyamine Sulfate 0.125 MG 1 tablet as needed Orally every 4 hrs 09/09/2023 Next Appt Details Follow Up: via phone to repo rt test results, Reason: Progress Notes * REUBEN LEVYDOB:1970 (54 yo F)Acc No.[id number]:09/09/2023 Progress Notes Patient: REUBEN DUNN Provider: Kana Curiel M.D. :1970 A ge:53 Y S ex:Female Date:09/09/2023 Address:[address] [place] [id number] Pcp:Rocco Lema Subjective: * Chief Complaints: * 1 . Stomach pain ,vertgo and vomittiing. * HPI: G astroenterology: 53 year old female presents with c/o Abdominal Pain P t complains of epigastric pain for 3-4 days. States she woke up this mornign and she was really dizzy and started vomiting . Pt states pain is worse at night and after eating. Pt thinks she could have a hiatal hernia. * ROS: C ARDIOLOGY: no C hest pain. n o P alpitations. D ERMATOLOGY: no R radha. n o H donald. U ROLOGY: no D ifficulty urinating. n o B lood in urine. * Medical History: S coliosis, 10 pack years smoking history, quit in 2011. * Surgical History: C section , Tubal Ligation , Eyelid Surgery . * Hospitalization/Major Diagno stic Procedure: D enies Past Hospitalization. * Family History: F ather: alive 85 yrs. M other: 80 yrs, Alzheimers. S iblings: alive. C hildren: alive. 2 sister(s) . 1 son(s) , 1 daughter(s) - healthy. . * Social History: C URRENT TOBACCO USE A dditional Findings: Tobacco Non-User E x-cigarette smoker. C affeine: no, frequency:. Home smoke detector use: yes. Marital Status: . Past smoking status: no. Alcohol: No. * Medications: T aking Benadryl Allergy 25 MG Capsule 1 cap(s) orally hs , Taking Meloxicam 15 MG Tablet 1 tablet Orally Once a day , Medication List reviewed and reconciled with the patient * Allergies: N .K.D.A. Objective: * Vitals: W t:163.8, Temp:98.3, BP:140/70, HR:64, Nurse:darron, Ht: 63.50, BMI:28.56. * Examination: G astroenterology: General Appearance: p leasant, NAD. Oral cavity: n ormal. Sclera: a nicteric. Heart sounds: r egular, normal S1 S2, no murmurs. Lungs: c lear, no rales or wheezes. Abdomen: B S present, soft, RUQ and epigastric tenderness to palpation, no guarding or rigidity, no masses felt. Assessment: * Assessment: 1. R UQ abdominal pain - R10.11 (Primary) 2 . N ausea and vomiting, unspecified vomiting type - R11.2 Plan: * Treatment: Value Reference Range A mylase 63 28-100 - U/L * Adriana Best 09/12/2023 1:19:30 PM > Pt informed ?LAB: P-Comprehensive Metabolic Panel (CMP) (Collection Date & Time - 09/09/2023 10:35 AM)?Satisfactory* Value Reference Range A /G Ratio 2.1 1.1-2.5 - mg/dL * A lbumin 4.5 3.5-5.3 - g/dL * A lkaline Phosphatase 92 35-121 - IU/L * A LT (SGPT) 17 <5-47 - IU/L * A ST (SGOT) 18 <5-40 - IU/L * B ilirubin, Total 0.5 <0.2-1.2 - mg/dL * B UN 9 6-20 - mg/dL * C alcium 9.7 8.6-10.4 - mg/dL * C hloride 105 97-108 - mEq/L * C O2 25 22-32 - mEq/L * C reatinine 0.79 0.50-1.00 - mg/dL * G lucose 101 H 65-99 - mg/dL * P otassium 4.7 3.5-5.3 - mEq/L * S odium 141 135-145 - mEq/L * P rotein 6.6 6.0-8.3 - g/dL * e GFR by Creatinine 89 >59 - mL/min/1.73m2 * Adriana Best 09/12/2023 1:20:32 PM > Pt informed ?LAB: P-Lipase (Collection Date & Time - 09/09/2023 10:35 AM)?Normal* Value Reference Range L ipase 28.0 13.0-60.0 - u/L * Adriana Best 09/12/2023 1:20:12 PM > Pt informed ?LAB: CBC Fingerstick (in house) (Collection Date & Time - 09/09/2023)* Value Reference Range w bc 8.1 3.5 - 10 * l ym 23.4 15 - 50 * m id 6.0 2 - 15 * g ran 70.6 35 - 80 * r bc 4.82 3.5 - 5.5 * h gb 14.8 11.5 - 16.5 * h ct 45.5 35 - 55 * m cv 94.2 75 - 100 * m ch 30.7 25 - 35 * m chc 32.6 31 - 38 * p lat 195 100 - 400 * Dia Ortiz 09/09/2023 1 1:11:07 AM > , Provider reviewed results while patient in office. ?Imaging: Ultrasound : Right Upper Quadrant (Performed Date - 09/15/2023)? unremarkable* Bing Flynn 09/12/2023 9:52:3 3 AM > [facility] 09/15/2023 at 08:30am; pt informed; order LiyahPebbles Fran 09/19/2023 10:38:52 AM > , Patient informed of normal results. 2.?Nausea and vomiting, unspecified vomiting type? Start Ondansetron HCl Tablet, 4 MG, 1 tablet, Orally, three times a day as needed, 12, Refills 1. ?LAB: P-Amylase (Collection Date & Time - 09/09/2023 10:35 AM)?Normal* Value Reference Range A mylase 63 28-100 - U/L * Adriana Best 09/12/2023 1:19:30 PM > Pt informed ?LAB: P-Comprehensive Metabolic Panel (CMP) (Collection Date & Time - 09/09/2023 10:35 AM)?Satisfactory* Value Reference Range A /G Ratio 2.1 1.1-2.5 - mg/dL * A lbumin 4.5 3.5-5.3 - g/dL * A lkaline Phosphatase 92 35-121 - IU/L * A LT (SGPT) 17 <5-47 - IU/L * A ST (SGOT) 18 <5-40 - IU/L * B ilirubin, Total 0.5 <0.2-1.2 - mg/dL * B UN 9 6-20 - mg/dL * C alcium 9.7 8.6-10.4 - mg/dL * C hloride 105 97-108 - mEq/L * C O2 25 22-32 - mEq/L * C reatinine 0.79 0.50-1.00 - mg/dL * G lucose 101 H 65-99 - mg/dL * P otassium 4.7 3.5-5.3 - mEq/L * S odium 141 135-145 - mEq/L * P rotein 6.6 6.0-8.3 - g/dL * e GFR by Creatinine 89 >59 - mL/min/1.73m2 * Adriana Best 09/12/2023 1:20:32 PM > Pt informed ?LAB: P-Lipase (Collection Date & Time - 09/09/2023 10:35 AM)?Normal* Value Reference Range L ipase 28.0 13.0-60.0 - u/L * Adriana Best 09/12/2023 1:20:12 PM > Pt informed ?Imaging: Ultrasound : Right Upper Quadrant (Performed Date - 09/15/2023)? unremarkable* RinaLeandroBing 09/12/2023 9:52:3 3 AM > [facility] 09/15/2023 at 08:30am; pt informed; order LiyahStefanianess Peters 09/19/2023 10:38:52 AM > , Patient informed of normal results. * Procedure Codes: 8 5025 CBC WITH AUTO DIFF * Follow Up: v ia phone to report test results * Billing Information: * Visit Code: 44764 Office Visit, Est Pt., Level 4. * Procedure Codes: 27019 CBC WITH AUTO DIFF. * Electronic signature of Nabila Curiel MD on 09/20/2024 at 07:50 AM EDT Sign off status: Pending * Provider: Kana Curiel M.D. Date: 0 09/09/2023 Generated for Reji saleem/Fabricio/Crisitting on: 0 09/20/2024 07:50 AM EDT History and Physical Notes * HPI (History of Present Illness) Category Sub-Category Detail Notes Category Not es Gastroenterology Abdominal Pain Pt complains of epigastric pain for 3-4 days. States she woke up this mornign and she was really dizzy and started vomiting . Pt states pain is worse at night and after eating. Pt thinks she could have a hiatal hernia Examination Category Sub-Category Detail Notes Category Not es Gastroenterology Oral cavity: normal Sclera: anicteric Heart sounds: regular, normal S1 S 2, no murmurs Lungs: clear, no rales or w heezes Abdomen: BS present, soft, RU Q and epigastric tenderness to palpation, no guarding or rigidity, no masses felt General Appearance: pleasant, NAD
--- OUTSIDE RECORDS SUMMARY | 2024-03-02 06:45 | XMS_ITS ---
Author Organization [facility] Address [address] [facility] [address] [place] [phone] Care Team Providers Care Ferry Engineer Name Role Phone Rocco Lema Primary Care Provider KiranAle rahman Unavailable [phone] Allergies No Known Allergies Results Component Value Reference Range Notes H-CBC Reviewed date:03/02/2024 04:34:57 PM Interpretation: Performing Lab: Notes/Report: WBC 6.4 4.8-10.8 K/mm3 RBC 4.78 4.20-5.40 M/mm3 HGB 14.9 12.2-16.2 g/dL HCT 43.0 37.0-47.0 % MCV 90.0 81-99 fl MCH 31.2 27.0-31.2 pg MCHC 34.6 31.8-35.4 g/dL RDW 13.5 11.5-17.5 % PLT 207 142-424 K/mm3 MPV 9.1 7.4-10.4 fl NE% 53.8 37.0-80.0 % LY% 36.6 10-50 % MO% 5.4 1.7-9.3 % EO% 2.5 0.1-12.0 % BA% 1.7 0.1-2.0 % NE# 3.5 1.8-7.8 K/mm3 LY# 2.4 0.7-4.5 K/mm3 MO# 0.4 0.1-1.0 K/mm3 EO# 0.2 0.0-0.4 K/mm3 BA# 0.1 0-0.2 K/mm3 H-CMP Reviewed date:03/02/2024 04:34:57 PM Interpretation: Performing Lab: Notes/Report: NA 138 136-145 mmol/L K 4.4 3.5-5.1 mmoL/L CL 104 98-107 mmol/L CO2 26 22.0-30.0 mmol/L GAP 12.4 5-15 mEq/L BUN 14 7-17 mg/dl CREATT 0.80 0.52-1.04 mg/dl GFRAA 91 >60 ML/MIN EGFR 75 >60 ml/min GLU 99 74-100 mg/dl CA 9.9 8.4-10.2 mg/dl BILIT 0.6 0.2-1.3 mg/dl AST 24 14-36 U/L ALT 20 12-78 U/L TP 6.8 6.3-8.2 g/dl ALB 4.5 3.5-5.0 g/dl GLOB 2.3 1.3-3.2 g/dL AGRATIO 2.0 1.1-1.8 ALP 84 38-126 U/L H-Cardiac Enzymes Reviewed date:03/02/2024 04:34:57 PM Interpretation: Performing Lab: Notes/Report: CK 56 30-135 U/L CKMB 0.8 0.0-2.03 ng/ml CKMB INDEX 1.4 0-4.0 U/L TROP < 0.01 0.00-0.034 ng/ml <0.012-0.034 ng/mL NORMAL 0.035 - >0.120 ng/mL ELEVATED* *Serial testing recommended. A rise and fall with peak greater than 0.6 ng/mL may indicate acute myocardial infarction, but is not independently diagnostic. Clinical correlation is necessary. *ALERT* High levels of Biotin can falsely depress Troponin results. Many dietary supplements promoted for hair, skin, and nail benefits contain biotin levels up to 650 times the recommended daily intake of biotin. In addition to dietary supplements, Biotin is occasionally prescribed for medical conditions. EKG with rhythm strip Reviewed date:03/07/2024 08:49:28 AM Interpretation: Performing Lab: Notes/Report: Reason For Referral Diagnosis 1 Epigastric pain (R10 .13) Diagnosis 2 Gastroesophageal ref lux disease, unspecified whether esophagitis present (K21.9) Referral Organization [facility] Referring Provider First Name Ale Referring Provider Last Name Clay Referring Provider Speciality Physician Data Integrity Specialist Referred Provider Gastroenterology, . Referred Provider Specialty Gastroentero logy General Notes Ale Williamson 02/10 12:39:39 PM > Needs an appt with Rina SARMIENTO Brynn 03/02/2024 1:09:20 PM > faxed to [facility] Gastro Referral Priority Routine REASON FOR VISIT discuss hida scan Medications Medication SIG (Take, Route, Frequency, Duration) Notes Start Date End Date Status Pantoprazole Sodium 40 MG 1 tab Orally O nce a day for 30 day(s) 03/02/2024 Active Social History CURRENT TOBACCO USE: Question Answer Notes Additional Findings: Tobacco Non-User Ex-cigaret te smoker Problems Problem Type SNOMED Code ICD Code Onset Dates Problem Status W/U Status Risk Notes Problem [id number] Gastroesophageal reflux disease, unspecified whether esophagitis present (K21.9) Active confirmed Vital Signs Blood pressure systolic 128 mm Hg 03/02/20 24 Blood pressure diastolic 68 mm Hg 024 Heart Rate 70 /min 03/02/2024 Height 63.50 in 03/02/2024 Weight 171.8 lbs 03/02/2024 BMI 29.95 kg/m2 03/02/2024 Encounters Encounter Location Date Provider Diagnosis [facility] [address] [facility] [address] [place] [phone] 03/02/2024 Ale iWlliamson Gastroesophageal ref lux disease, unspecified whether esophagitis present K21.9 ; Epigastric pain R10.13 and Atypical chest pain R07.89 Assessments Encounter Date Diagnosis (ICD Code) Assessment Notes Treatment Notes Treatment Clinical Notes Section Notes 03/02/2024 Gastroesophageal reflux disease, unspecified whether esophagitis present (ICD-10 - K21.9) 03/02/2024 Epigastric pain (ICD-10 - R10.13) 03/02/2024 Atypical chest pain (ICD-10 - R07.89) Plan Of Treatment Medication Medication Name Sig Start Date Stop Date Notes Pantoprazole Sodium 40 MG 1 tab Orally O nce a day for 30 day(s) 03/02/2024 Referrals Referral Date Details 03/02/2024 03/02/2024, . Gastro enterology Next Appt Details Follow Up: via phone to repo rt test results, Reason: Progress Notes * REUBEN LEVYDOB:1970 (54 yo F)Acc No.[id number]:03/02/2024 Progress Notes Patient: REUBEN DUNN Provider: KIKI Colby :1970 A ge:53 Y S ex:Female Date:03/02/2024 Address:[address] [place] [address], [phone] Pcp:Rocco Lema Subjective: * Chief Complaints: * 1 . Discuss hida scan. * HPI: H PI: 53 year old female presents with c/o Patient is here today for?Pt sts she had a hida scan for her gallbladder but sts she is still having a lot of pain and pressure. Pt sts she saw that her results were normal and would like to discuss why she is having pain. The pain starts in the epigastric area and radiates into her chest. It is worse at night. She does have reflux. She tried omeprazole but it gave her a headache so she stopped it.. * ROS: C ARDIOLOGY: no C hest pain. n o P alpitations. D ERMATOLOGY: no R radha. n o H donald. U ROLOGY: no D ifficulty urinating. n o B lood in urine. * Medical History: S coliosis, 10 pack years smoking history, quit in 2011. * Surgical History: C section , Tubal Ligation , Eyelid Surgery . * Family History: F ather: alive 85 [...] smoking status: no. Alcohol: No. * Medications: N one * Allergies: N .K.D.A. Objective: * Vitals: W t:171.8, Temp:98.5, BP:128/68, HR:70, Nurse:[facility], Ht: 63.50, BMI:29.95. * Examination: G eneral Examination: General Appearance: N AD. HEENT: u nremarkable. Oral cavity: n o lesions, mucosa moist and WNL, no erythema. Neck: s upple, no lymphadenopathy. Chest: n ormal shape and expansion. Heart: R SR. Lungs: c lear to auscultation. Abdomen: bowel sounds present, soft, nontender, no guarding or rigidity. Neurologic Exam: alert and oriented. ? Assessment: * Assessment: 1. G astroesophageal reflux disease, unspecified whether esophagitis present - K21.9 (Primary)? 2. E pigastric pain - R10.13 3 . A typical chest pain - R07.89 Plan: * Treatment: 2. E pigastric pain Referral To:. Gastroenterology Gastroenterology Reason: 3. A typical chest pain L AB: H-CBC (Collection Date & Time - 03/02/2024 11:54 AM) Value Reference Range W BC 6.4 4.8-10.8 - K/mm3 * R BC 4.78 4.20-5.40 - M/mm3 * H GB 14.9 12.2-16.2 - g/dL * H CT 43.0 37.0-47.0 - % * M CV 90.0 81-99 - fl * M CH 31.2 27.0-31.2 - pg * M CHC 34.6 31.8-35.4 - g/dL * R DW 13.5 11.5-17.5 - % * P LT 207 142-424 - K/mm3 * M PV 9.1 7.4-10.4 - fl * N E% 53.8 37.0-80.0 - % * L Y% 36.6 10-50 - % * M O% 5.4 1.7-9.3 - % * E O% 2.5 0.1-12.0 - % * B A% 1.7 0.1-2.0 - % * N E# 3.5 1.8-7.8 - K/mm3 * L Y# 2.4 0.7-4.5 - K/mm3 * M O# 0.4 0.1-1.0 - K/mm3 * E O# 0.2 0.0-0.4 - K/mm3 * B A# 0.1 0-0.2 - K/mm3 * ClayAle Preston 03/02/2024 4 :34:42 PM > discussed with patient ?LAB: H-CMP (Collection Date & Time - 03/02/2024 11:54 AM)* Value Reference Range N A 138 136-145 - mmol/L * K 4.4 3.5-5.1 - mmoL/L * C L 104 98-107 - mmol/L * C O2 26 22.0-30.0 - mmol/L * G AP 12.4 5-15 - mEq/L * B UN 14 7-17 - mg/dl * C REATT 0.80 0.52-1.04 - mg/dl * G FRAA 91 >60 - ML/MIN * E GFR 75 >60 - ml/min * G ELLI 99 74-100 - mg/dl * C A 9.9 8.4-10.2 - mg/dl * B ILIT 0.6 0.2-1.3 - mg/dl * A ST 24 14-36 - U/L * A LT 20 12-78 - U/L * T P 6.8 6.3-8.2 - g/dl * A LB 4.5 3.5-5.0 - g/dl * G LOB 2.3 1.3-3.2 - g/dL * A GRATIO 2.0 H 1.1-1.8 - * A LP 84 38-126 - U/L * Ale Williamson 03/02/2024 4 :34:42 PM > discussed with patient ?LAB: H-Cardiac Enzymes (Collection Date & Time - 03/02/2024 11:55 AM)* Value Reference Range C K 56 30-135 - U/L * C KMB 0.8 0.0-2.03 - ng/ml * C KMB INDEX 1.4 0-4.0 - U/L * T ROP < 0.01 0.00-0.034 - ng/ml * ClayAle Preston 03/02/2024 4 :34:42 PM > discussed with patient ?Imaging: EKG with rhythm strip (Performed Date - 03/02/2024)* Ale Williamson 03/07/2024 8 :49:02 AM > already discussed with patient * Follow Up: v ia phone to report test results * Billing Information: * Visit Code: 52237 Office Visit, Est Pt., Level 3. * Procedure Codes: * Electronic signature of KIKI Shepherd on 09/20/2024 at 07:50 AM EDT Sign off status: Pending * Provider: KIKI Colby Date: 1 05/02/2023 Generated for Printi ng/Fabitag/eTransmitting on: 0 09/20/2024 07:50 AM EDT History and Physical Notes * HPI (History of Present Illness) Category Sub-Category Detail Notes Category Not es HPI Patient is here today for Pt sts she had a hida scan for her gallbladder but sts she is still having a lot of pain and pressure. Pt sts she saw that her results were normal and would like to discuss why she is having pain. The pain starts in the epigastric area and radiates into her chest. It is worse at night. She does have reflux. She tried omeprazole but it gave her a headache so she stopped it. Examination Category Sub-Category Detail Notes Category Not es General Examination HEENT: unremarkable Heart: RSR Lungs: clear to auscultatio n Abdomen: bowel sounds present , soft, nontender, no guarding or rigidity General Appearance: NAD Neurologic Exam: alert and oriented Neck: supple, no lymphaden opathy Oral cavity: no lesions, mucosa m oist and WNL, no erythema Chest: normal shape and exp ansion Consultation Request Notes Referral Date Referring Provider Referred Provider Not es 03/02/2024 Ale Williamson Gastroenterology, .
--- OUTSIDE RECORDS SUMMARY | 2024-07-10 06:30 | XMS_ITS ---
[facility] Address [address] [facility] [place] [address] [place] [id number] Care Team Providers Care Service Center Appraiser Name Role Phone Rocco Lema Primary Care Provider Fatoumata Barron Unavailable [phone] Allergies No Known Allergies Results Component Value Reference Range Notes Urinalysis - Inhouse Reviewed date:07/10/2024 08:36:02 PM Interpretation: Performing Lab: Notes/Report: Color/Clarity clear Leuk neg Nitrite neg Urobili 3.2 Protein neg pH 6.5 Blood neg Sp. Gr. 1.010 Ketone neg Bili neg Gluc neg REASON FOR VISIT possible UTI Social History CURRENT TOBACCO USE: Question Answer Notes Additional Findings: Tobacco Non-User Ex-cigaret te smoker Vital Signs Blood pressure systolic 116 mm Hg 07/11/19 25 Blood pressure diastolic 80 mm Hg 025 Heart Rate 70 /min 07/10/2024 Height 63.50 in 07/10/2024 Weight 166.4 lbs 07/10/2024 BMI 29.01 kg/m2 07/10/2024 Encounters Encounter Location Date Provider Diagnosis Radha [address] [facility] [address] [place] [id number] 07/10/2024 Fatoumata Barron Cystitis N30. 90 Assessments Encounter Date Diagnosis (ICD Code) Assessment Notes Treatment Notes Treatment Clinical Notes Section Notes 07/10/2024 Cystitis (ICD-10 - N30.90) neg UA; discomfort most likey due to antihistamine; increase water intake; stop claritin for now Plan Of Treatment Treatment Notes Assessment Notes Cystitis neg UA; discomfort m ost likey due to antihistamine; increase water intake; stop claritin for now Next Appt Details Follow Up: prn, Reason: Progress Notes * REUBEN LEVYDOB:1970 (54 yo F)Acc No.[id number]:07/10/2024 Progress Notes Patient: REUBEN DUNN Provider: THANIA Panchal :1970 A ge:54 Y S ex:Female Date:07/10/2024 Address:[address] [address] [id number] Pcp:Rocco Lema Subjective: * Chief Complaints: * 1 . possible UTI. * HPI: U rology: 54 year old female presents with c/o frequent urination P t presents today with c/o pain in the lower abdomen and painful urination. Pt sts that she has been drinking a lot of water but sts that she feels like she cannot fully empty her bladder and needs to urinate even after she has just went. c/o burning sensation. c/o suprapubic pain. Denies : hematuria. D enies : fever. has recently started and antihistamine; bowels are moving daily and have been normal; no vaginal discharge or bleeding. * ROS: C ARDIOLOGY: no C hest pain. n o P alpitations. D ERMATOLOGY: no R radha. n o H donald. U ROLOGY: Difficulty urinating yes. n o B lood in urine.?Frequent urination yes. * Medical History: S coliosis, 10 pack years smoking history, quit in 2011. * Surgical History: C section , Tubal Ligation , Eyelid Surgery , EGD & Colonoscopy 2024. * Family History: F ather: alive 86 yrs. M other: 80 yrs, Alzheimers. S iblings: alive. C hildren: alive. 2 sister(s) . 1 son(s) , 1 daughter(s) - healthy. . * Social History: C URRENT TOBACCO USE A dditional Findings: Tobacco Non-User E x-cigarette smoker. C affeine: no, frequency:. Home smoke detector use: yes. Marital Status: . Past smoking status: no. Alcohol: No. * Medications: D iscontinued Pantoprazole Sodium 40 MG Tablet Delayed Release 1 tab Orally Once a day , Medication List reviewed and reconciled with the patient * Allergies: N .K.D.A. Objective: * Vitals: W t: 166.4, Temp: 98.1, BP: 116/80, HR: 70, Nurse: OZZY, Ht: 63.50, BMI:29.01. * Examination: G eneral Examination: General Appearance: NAD, appears healthy, alert, well nourished and hydrated. Heart: RRR. Lungs: CTAB A&P. Abdomen: bowel sounds present, soft and nontender, no organomegaly or masses, no guarding or rigidity, no CVA tenderness, no suprapubic tenderness. Neurologic Exam: alert and oriented. Extremities: no leg edema. Assessment: * Assessment: 1. C ystitis - N30.90 (Primary) Plan: * Treatment: * Labs: * L ab: Urinalysis - Inhouse (Collection Date & Time - 07/10/2024) Value Reference Range C olor/Clarity clear * L euk neg * N itrite neg * U robili 3.2 * P rotein neg * p H 6.5 * B lood neg * S p. Gr. 1.010 * K etone neg * B loan neg * G dread neg * Rosa Connell 07/10/2024 11:0 0:05 AM > results reviewed w/ pt in Fatoumata Powell 07/10/2024 8:36:01 PM > * Procedure Codes: 8 1002 Urinalysis, no micro, 3074F SYST BP LT 130 MM HG, 3079F DIAST BP 80-89 MM HG * Follow Up: p rn * Billing Information: * Visit Code: 12708 Office Visit, Est Pt., Level 3. * Procedure Codes: 08611 Urinalysis, no micro. 3074F SYST BP LT 130 MM HG. 3079F DIAST BP 80-89 MM HG. * Electronic signature of Rachel Barron APRN on 09/20/2024 at 07:50 AM EDT Sign off status: Pending * Provider: THANIA Panchal Date: 0 07/10/2024 Generated for Reji saleem/Fabricio/eTchetnasmitting on: 0 09/20/2024 07:50 AM EDT History and Physical Notes * HPI (History of Present Illness) Category Sub-Category Detail Notes Category Not es Urology frequent urination Pt presents t robson with c/o pain in the lower abdomen and painful urination. Pt sts that she has been drinking a lot of water but sts that she feels like she cannot fully empty her bladder and needs to urinate even after she has just went has recently started and antihistamine; bowels are moving daily and have been normal; no vaginal discharge or bleeding burning sensation suprapubic pain hematuria fever Examination Category Sub-Category Detail Notes Category Not es General Examination Heart: RRR Lungs: CTAB A&P Abdomen: bowel sounds present , soft and nontender, no organomegaly or masses, no guarding or rigidity, no CVA tenderness, no suprapubic tenderness Extremities: no leg edema General Appearance: NAD, appears healthy , alert, well nourished and hydrated Neurologic Exam: alert and oriented
--- OUTSIDE RECORDS SUMMARY | 2024-09-20 07:51 | XMS_ITS | Patient Health Record ---
Author Organization [facility] Address [address] [place] [id number] Care Team Providers Care Spiral Runner Name Role Phone Rocco Lema Primary Care Provider Fatoumata Barron Unavailable [phone] KiranAle rahman Unavailable [phone] Allergies No Known Allergies Results Component Value [...] date:03/07/2024 08:49:28 AM Interpretation: Performing Lab: Notes/Report: Urinalysis - Inhouse Reviewed date:07/10/2024 08:36:02 PM Interpretation: Performing Lab: Notes/Report: Color/Clarity clear Leuk neg Nitrite neg Urobili 3.2 Protein neg pH 6.5 Blood neg Sp. Gr. 1.010 Ketone neg Bili neg Gluc neg HIDA SCAN Reviewed date:03/02/2024 10:50:57 AM Interpretation:Normal Performing Lab: Notes/Report: Normal Social History CURRENT TOBACCO USE: Question Answer Notes Additional Findings: Tobacco Non-User Ex-cigaret te smoker Problems Problem Type SNOMED Code ICD Code Onset Dates Problem Status W/U Status Risk Notes Problem 39464901 Generalized anxi ety disorder (F41.1) Active confirmed Problem [id number] Acute right-side d low back pain without sciatica (M54.5) Active confirmed Problem [id number] Gastroesophageal reflux disease, unspecified whether esophagitis present (K21.9) Active confirmed Vital Signs Heart Rate 70 /min 07/10/2024 Blood pressure diastolic 80 mm Hg 07/10/2024 Height 63.50 in 07/10/2024 Blood pressure systolic 116 mm Hg 07/10/2024 Weight 166.4 lbs 07/10/2024 BMI 29.01 kg/m2 07/10/2024 Encounters Encounter Location Date [facility] [address] [facility] [address] [place], [place] [id number] 03/02/2024 Ale Williamson Gastroesophageal ref lux disease, unspecified whether esophagitis present K21.9 ; Epigastric pain R10.13 and Atypical chest pain R07.89 [facility] [address] [place] [facility] [address] [facility] [address] [place], [place] [phone] 07/10/2024 Fatoumata Sandhuond Cystitis N30.90 Assessments Encounter Date Diagnosis (ICD Code) Assessment Notes Treatment Notes Treatment Clinical Notes Section Notes 03/02/2024 Gastroesophageal reflux disease, unspecified whether esophagitis present (ICD-10 - K21.9) 07/10/2024 Cystitis (ICD-10 - N30.90) neg UA; discomfort most likey due to antihistamine; increase water intake; stop claritin for now 03/02/2024 Epigastric pain (ICD-10 - R10.13) 03/02/2024 Atypical chest pain (ICD-10 - R07.89) Plan Of Treatment Pending Test Test Name Order Date colonoscopy 08/22/2023 Insurance Providers Payer Name Payer Address Payer Phone Subscriber Number Group Number Insured Name Patient Relationship to Insured Coverage Start Date Coverage End Date [facility] [address] [place] [phone] [id number] REUBEN LEVY Self - patient is the insured Medical (General) History Medical History History ICD Code Scoliosis 10 pack years smoking history, quit in 2 012 Surgical History Surgery Date(Month/Year) C section Tubal Ligation Eyelid Surgery EGD & Colonoscopy 2024
--- OUTSIDE RECORDS SUMMARY | 2024-09-20 07:51 | XMS_ITS | Clinical Summary ---
Author Organization [facility] Address [address] [place] [address] Phone Care Team Providers Care Rangelands Conservation Laborer Name Role Phone Unavailable Primary Care Provider Unavailabl e Social History Tobacco Use Types Packs/Day Years Used Date Smoking Tobacco: Never Assessed Comments Unknown Sex and Gender Information Value Date Recorded Sex Assigned at Not on file Legal Sex Female 8:40 PM EDT Gender Identity Not on file Sexual Orientation Not on file Plan of Treatment Health Maintenance Due Date Last Done Comments Annual Wellness Exam 1973 DTaP/TDaP/Td (1 - Tdap) 1989 Hepatitis B Vaccine (1 of 3 - 19+ 3-dose series) 1989 HPV/Pap Cotest 2000 Breast Cancer Screening 2010 Cervical Cancer Screening 06/15/2013 Pap Smear 06/15/2013 06/15/2010 Cologuard 2015 Colon Cancer Screening 2015 Colonoscopy 2015 FIT 2015 Sigmoidoscopy 2015 Virtual Colonography 2015 Pneumococcal Vaccine 50+ (1 of 1 - PCV) 2020 Zoster (1 of 2) 2020 COVID-19 Vaccine (2023-2 5 season) 2023 Influenza Vaccine (Season Ended) 2024 Meningococcal B Vaccine Aged Out No l onger eligible based on patient's age to complete this topic Procedures Procedure Name Priority Date/Time Associated Diagnosis Comments CLIENT ACCOUNT MANAGER CYTOLOGY REPORT Routine 06/15/2010 7 :57 AM EST from Last 3 Months or Most Recently Relevant to Health Maintenance Results * CLIENT ACCOUNT MANAGER CYTOLOGY REPORT (06/15/2010 7:57 AM EST) Kosher Sealer Cytology Report PATIENT NAME:REUBEN LEVY Kosher Sealer Cytology Report Accession Number Collected Date/Time Received Date/Time [id number] 06/15/10 07:57 EST 06/16/10 07:57 EST GY Specimen Source Specimen Vag/Cerv/Endocx?: Cervical/Endocervi anna Statement of Adequacy Satisfactory for Evaluation. Transformation Zone Present. Diagnosis NEGATIVE FOR INTRAEPITHELIAL LESION OR MALIGNANCY. Comment The Pap Smear is a screening test that aids in the detection of cervical cancer and cancer precursors. Both false positive and false negative results can occur. The test should be used at regular intervals, and positive results should be confirmed before definitive therapy. Processed using the ThinkSuitPrep Blue Line Trimmer automated cytology screening device (Zuora). [employer] Consultant: CROW 06/21/2010 Completed by: JUSTIN Hubbard (Electronically signed by) 06/21/2010 [facility] Laboratory [facility] 06/15/2010 7:57 AM EST us Shakir Montejo CNM PATHOLOGY ORDERABLES Final Res ult Performing Organization Address City/State/[facility] Co de Phone Number [facility] [address] [place] [address] from Last 3 Months or Most Recently Relevant to Health Maintenance Insurance on file
--- NOTE | 2024-09-20 08:00 | MM_ITS ---
PROCEDURE INFORMATION: Exam: MG Bilateral Screening 3D Mammography Exam date and time: 09/20/2024 7:50 AM Age: 54 years old Clinical indication: Screening examination. TECHNIQUE: Imaging protocol: Bilateral Screening tomosynthesis and 2D mammography including computer-aided detection (CAD) when performed. COMPARISON: 1. MG MM DIG SCREENING MAMM BI W/CAD 08/31/2023 1:17 PM 2. MG MM DIG SCREENING MAMM BI W/CAD 06/02/2022 3:45 PM FINDINGS: MAMMOGRAPHY: Breast composition: The breasts are heterogeneously dense, which may obscure small masses. Mass: None. Architectural distortion: None. Calcifications: No suspicious calcifications. Asymmetric density: None. Skin thickening: None. Axillary adenopathy: None. IMPRESSION: No mammographic evidence of malignancy. Annual screening is recommended unless otherwise clinically indicated. ASSESSMENT: BI-RADS Category 1: Negative.
== END 2024-09-20 23:59 | disposition home or self-care (01) ==
LOC: RAD 07:48
PROVIDERS: PCP Family Medicine; Visit Provider Obstetrics & Gynecology
DX: Z12.31 Encounter for screening mammogram for malignant neoplasm of breast (principal); R92.333 Mammographic heterogeneous density, bilateral breasts
CPT/HCPCS: 77063; 77067